=== PATIENT | male | born 1960 | race Caucasian/White ===

== ENCOUNTER 2016-09-15 13:58 | Emergency (ER) | payer SELFPAY ==
[~2016-09-15] VITALS: Ht 180.3 cm; Wt 63.5 kg
[2016-09-15 14:06] VITALS: BP 168/87
[2016-09-15] MEDS ORDERED: KETOROLAC TROMETH 60MG/2ML VIAL IM ONE (16:00)
== END 2016-09-15 16:11 | disposition home or self-care (01) ==
LOC: ER 14:02
DX: S16.1XXA Strain of muscle, fascia and tendon at neck level, initial encounter (principal); M17.12 Unilateral primary osteoarthritis, left knee; S83.92XA Sprain of unspecified site of left knee, initial encounter; E11.9 Type 2 diabetes mellitus without complications; F17.210 Nicotine dependence, cigarettes, uncomplicated; Y08.89XA Assault by other specified means, initial encounter; Y93.89 Activity, other specified; Y92.89 Other specified places as the place of occurrence of the external cause; Y99.8 Other external cause status
CPT/HCPCS: 72040; 73562; 96372; 99284; J1885